=== PATIENT | male | born 2000 | race Caucasian/White ===

== ENCOUNTER 2023-02-25 16:23 | Emergency (ER) | payer SELFPAY ==
[2023-02-25] MEDS ORDERED: Ibuprofen 600 MG Tab PO ONE (17:03)
== END 2023-02-25 19:21 | disposition home or self-care (01) ==
LOC: EDSEX 16:23 → MW.ED 16:23
DX: I83.92 Asymptomatic varicose veins of left lower extremity (principal); Z88.1 Allergy status to other antibiotic agents
CPT/HCPCS: 73590; 93971; 99284; A9270